=== PATIENT | male | born 1985 | race Caucasian/White ===

== ENCOUNTER → 2017-03-10 | Outpatient (CLI) | payer BC | END | disposition home or self-care (01) | LOC: C.LAB1850 16:30 | PROVIDERS: ATTEND Specialist | DX: Z11.3 Encounter for screening for infections with a predominantly sexual mode of transmission (principal); Z11.4 Encounter for screening for human immunodeficiency virus [HIV] ==

== ENCOUNTER 2020-08-13 18:34 | Inpatient (IN) ==
[2020-08-13] MEDS ORDERED: SODIUM CHLORIDE 0.9% 1000ML 1,000 ML IV ONE (19:52)
[2020-08-13 20:13] LABS: Basophils # (auto) 0.03 K/uL (0-0.2); Basophils % (auto) 0.2 %; Eosinophils # (auto) 0.19 K/uL (0-0.5); Eosinophils % (auto) 1.1 %; Hematocrit (blood only) 50.9 % (42-52); Hemoglobin 17.9 g/dL (14.0-18.0); Immature Granulocytes # (auto) 0.04 K/uL (0.00-0.02); Immature Granulocytes % (auto) 0.2 %; Lymphocytes # (auto) 2.42 K/uL (1.2-3.4); Lymphocytes % (auto) 13.9 %; Mean Corpuscular Hemoglobin 30.2 pg (25-34); Mean Corpuscular Hgb Conc 35.2 g/dL (32-36); Mean Corpuscular Volume 85.8 fL (80-100); Mean Platelet Volume 9.3 fL (7.4-10.4); Monocytes # (auto) 1.06 K/uL (0.11-0.59); Monocytes % (auto) 6.1 %; Neutrophils # (auto) 13.68 K/uL (1.4-6.5); Neutrophils % (auto) 78.5 %; Platelet Count 265 K/uL (130-400); RDW Coefficient of Variation 12.7 % (11.5-14.5); RDW Standard Deviation 40.1 fL (36.4-46.3); Red Blood Count 5.93 M/uL (4.7-6.1); White Blood Count 17.42 K/uL (4.8-10.8)
--- NOTE | 2020-08-13 20:16 | Emergency Department Note ---
Impression & Plan Sigmoid diverticulitis, Abdominal pain, Leukocytosis ED Provider Note NAME: MICHELLE ARDON AGE: 35 SEX: M : 1985 ARRIVES VIA: Walk-In INFORMANT: Patient ED PROVIDER(S): Toño Anglin DO CHIEF COMPLAINT: Right lower quadrant abdominal pain HPI: Patient is a 35-year-old male who presents the ER for right lower quadrant abdominal pain which started at 8 PM last night. He notes it is a constant pain sharp stabbing and a 7 out of 10. He does not want to eat anymore. Denies any vomiting. Denies any dysuria, urgency or frequency. No other exacerbating or remitting factors. Pain has been getting gradually worse. No previous abdominal surgeries. ROS: See above HPI for pertinent positives & negatives. A total of 10 systems reviewed and were otherwise negative. PAST MEDICAL HISTORY:See Below PAST SURGICAL HISTORY:See Below FAMILY HISTORY:See Below SOCIAL HISTORY:See Below HOME MEDICATIONS:See Below ALLERGIES:See Below VITALS:See Below PHYSICAL EXAMINATION: GENERAL: Sitting up in bed, alert, well appearing, well nourished, no distress, non-toxic EYE EXAM: normal conjunctiva. OROPHARYNX: no exudate, no erythema, lips, buccal mucosa, and tongue normal and mucous membranes are moist NECK: supple, no nuchal rigidity, no adenopathy, non-tender LUNGS: Clear to auscultation. Normal chest wall mechanics HEART: no murmurs, S1 normal and S2 normal ABDOMEN: abdomen soft, tender to palpation right lower quadrant, normo-active bowel sounds, no masses, no rebound or guarding. BACK: Back is symmetrical on inspection and there is no deformity, no midline tenderness, no CVA tenderness. SKIN: no rashes and no bruising UPPER EXTREMITIES: upper extremities are grossly normal. LOWER EXTREMITIES: No pitting edema. NEURO EXAM: Normal sensorium, cranial nerves II-XII grossly intact, normal speech, no gross weakness of arms, no gross weakness of legs. MEDICAL DECISION MAKING: Patient is a 35-year-old male who presents the ER for abdominal pain. Is located in the right lower quadrant. Associated with nausea. Patient does not feel like he wants to eat. Upon presentation he was found to be tachycardic. Temperature was 37.7. Labs show a leukocytosis of 17,000. No significant anemia. BMP with LFTs bilirubin was unremarkable. Lipase was unremarkable. UA was unremarkable. Patient was given IV fluids IV antibiotics and IV morphine. Discussed with general surgery following a CT abdomen pelvis which showed sigmoid diverticulitis in the right lower quadrant. Patient was given IV Flagyl and IV Cipro. Updated admitted to the hospitalist for further work-up. Triage Nursing notes reviewed. Prior medical records reviewed Vital Signs: reviewed and remarkable for tachy Differential diagnosis: Differential diagnoses includes but is not limited to gastritis, peptic ulcer disease, GERD, gallbladder disease, pancreatitis, small bowel obstruction, acute coronary syndrome, pericarditis, ischemic bowel, irritable bowel disease, irritable bowel syndrome, appendicitis, diverticulitis, malignancy, hernia, urinary tract infection, torsion, [/ectopic (if female)], perforation, trauma, infectious. ER treatment provided: See below Diagnostics interpreted by me: ECG: none Cardiac Monitoring: An order was placed for continuous cardiac monitoring. The monitor shows a rate of 94 with sinus rhythm. Laboratory studies: As stated above and show below. Imaging studies: CT abdomen pelvis shows acute diverticulitis Consultation(s): Discussed with Ly Ying for further evaluation Patient was evaluated by Lisandro from Surg who agreed with recommended admission ED COURSE: Procedures: none Critical Care: None Past Med/Surg History Surgical History (Updated 08/13/20 @ 23:43 by Tala Ying DO) History of hand surgery History of knee surgery History of shoulder surgery Family History (Updated 08/13/20 @ 23:43 by Tala Ying DO) Other Diverticulitis Social History Smoking Status: Never smoker Hx Alcohol Use: No Hx Substance Use: No Preferred Language: Portuguese Communication Ability: Effective 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 Beliefs That Will Affect Care: None Current Living Situation: Spouse Feels Safe at Home: Yes Assistive Devices: Glasses Allergies Allergies Allergy/AdvReac Type Severity Reaction Status Date / Time No Known Allergies Allergy Verified 08/13/20 22:33 Home Meds Home Medications Medication Instructions Recorded Confirmed No Known Home Medications 08/13/20 08/13/20 Results & Data (ED) Vital Signs Vital Signs - 24 hr 08/13/20 19:01 08/13/20 20:02 08/13/20 20:08 Temperature 37.6 C H Temperature Source Oral Pulse Rate 107 H 96 H Pulse Rate from SpO2 Sensor Respiratory Rate 16 18 Respiratory Effort / Characteristics Non-Labored Spontaneous Respiratory Depth Normal Blood Pressure 150/88 H 114/86 Blood Pressure Mean 108 91 Pulse Oximetry 99 Oxygen Delivery Method Room Air Room Air Sepsis Recent Fever Within 48 Hours No Sepsis New/Unexplained Change in Mental Status N/A Sepsis Action Taken by Nursing No Action Required 08/13/20 21:03 08/13/20 21:10 08/13/20 21:17 Temperature Temperature Source Pulse Rate 99 H 94 H 95 H Pulse Rate from SpO2 Sensor 94 H Respiratory Rate 22 21 15 Respiratory Effort / Characteristics Respiratory Depth Blood Pressure 130/88 Blood Pressure Mean 108 Pulse Oximetry 98 Oxygen Delivery Method Sepsis Recent Fever Within 48 Hours Sepsis New/Unexplained Change in Mental Status Sepsis Action Taken by Nursing 08/13/20 21:20 08/13/20 21:30 08/13/20 21:40 Temperature Temperature Source Pulse Rate 97 H 93 H 92 H Pulse Rate from SpO2 Sensor 99 H 91 H 93 H Respiratory Rate 19 22 23 Respiratory Effort / Characteristics Respiratory Depth Blood Pressure 120/85 Blood Pressure Mean 97 Pulse Oximetry 98 98 97 Oxygen Delivery Method Sepsis Recent Fever Within 48 Hours Sepsis New/Unexplained Change in Mental Status Sepsis Action Taken by Nursing 08/13/20 21:50 08/13/20 22:00 08/13/20 22:10 Temperature Temperature Source Pulse Rate 93 H 89 90 Pulse Rate from SpO2 Sensor 92 H 90 90 Respiratory Rate 19 16 16 Respiratory Effort / Characteristics Respiratory Depth Blood Pressure 114/71 Blood Pressure Mean 83 Pulse Oximetry 98 97 99 Oxygen Delivery Method Room Air Sepsis Recent Fever Within 48 Hours Sepsis New/Unexplained Change in Mental Status Sepsis Action Taken by Nursing 08/13/20 22:20 08/13/20 22:30 08/13/20 22:40 Temperature Temperature Source Pulse Rate 91 H 94 H 91 H Pulse Rate from SpO2 Sensor 92 H 93 H 92 H Respiratory Rate 12 17 19 Respiratory Effort / Characteristics Respiratory Depth Blood Pressure 124/82 Blood Pressure Mean 99 Pulse Oximetry 98 94 92 Oxygen Delivery Method Sepsis Recent Fever Within 48 Hours Sepsis New/Unexplained Change in Mental Status Sepsis Action Taken by Nursing 08/13/20 22:50 08/13/20 23:00 08/13/20 23:10 Temperature Temperature Source Pulse Rate 95 H 94 H 98 H Pulse Rate from SpO2 Sensor 96 H 94 H 98 H Respiratory Rate 26 H 23 26 H Respiratory Effort / Characteristics Respiratory Depth Blood Pressure 102/75 Blood Pressure Mean 81 Pulse Oximetry 92 92 92 Oxygen Delivery Method Sepsis Recent Fever Within 48 Hours Sepsis New/Unexplained Change in Mental Status Sepsis Action Taken by Nursing 08/13/20 23:20 Temperature Temperature Source Pulse Rate 93 H Pulse Rate from SpO2 Sensor 93 H Respiratory Rate 27 H Respiratory Effort / Characteristics Respiratory Depth Blood Pressure Blood Pressure Mean Pulse Oximetry 92 Oxygen Delivery Method Sepsis Recent Fever Within 48 Hours Sepsis New/Unexplained Change in Mental Status Sepsis Action Taken by Nursing Laboratory Data Result diagrams: 08/13/20 20:02 08/13/20 20:02 Lab Results 08/13/20 08/13/20 08/13/20 Range/Units 20:02 20:02 20:03 WBC 17.42 H (4.8-10.8) K/uL RBC 5.93 (4.7-6.1) M/uL Hgb 17.9 (14.0-18.0) g/dL POC Hgb (14.0-18.0) g/dl Hct 50.9 (42-52) % POC Hct (42-52) % MCV 85.8 (80-100) fL MCH 30.2 (25-34) pg MCHC 35.2 (32-36) g/dL RDW Std Deviation 40.1 (36.4-46.3) fL RDW Coeff of Carly 12.7 (11.5-14.5) % Plt Count 265 (130-400) K/uL MPV 9.3 (7.4-10.4) fL Immature Gran % (Auto) 0.2 % Neut % (Auto) 78.5 % Lymph % (Auto) 13.9 % [place] % (Auto) 6.1 % Eos % (Auto) 1.1 % Baso % (Auto) 0.2 % Neut # (Auto) 13.68 H (1.4-6.5) K/uL Lymph # (Auto) 2.42 (1.2-3.4) K/uL [place] # (Auto) 1.06 H (0.11-0.59) K/uL Eos # (Auto) 0.19 (0-0.5) K/uL Baso # (Auto) 0.03 (0-0.2) K/uL Immature Gran # (Auto) 0.04 H (0.00-0.02) K/uL POC Sodium (135-144) mmol/L Sodium 139 (136-145) mmol/L POC Potassium (3.3-5.0) mmol/L Potassium 3.8 (3.5-5.1) mmol/L POC Chloride (101-112) mmol/L Chloride 102 (98-107) mmol/L Carbon Dioxide 29 (21-32) mmol/L POC Total CO2 (24-31) mmol/L Anion Gap 8.0 (3-11) POC Anion Gap (16-25) mmol/L POC BUN (7-18) mg/dl BUN 11 (7-18) mg/dl Creatinine 1.09 (0.6-1.4) mg/dl POC Creatinine (0.6-1.3) mg/dl Est Cr Clr Drug Dosing 114.6 ml/min Est GFR ( Amer) 102.1 Est GFR (Non-Af Amer) 88.1 BUN/Creatinine Ratio 10.4 (10-20) Glucose 106 H (70-99) mg/dl POC Glucose (other) (70-99) mg/dl Calcium 9.8 (8.5-10.1) mg/dl POC Ioniz Calcium Minerva (1.12-1.32) mmol/l Total Bilirubin 0.6 (0.2-1) mg/dl AST 15 (15-37) U/L ALT 59 (12-78) U/L Alkaline Phosphatase 87 (45-117) U/L Total Protein 8.8 H (6.4-8.2) gm/dl Albumin 4.3 (3.4-5.0) gm/dl Globulin 4.5 H (2.5-4.0) gm/dl Albumin/Globulin Ratio 1.0 (0.9-2) Lipase 68 L (73-393) U/L Urine Color Yellow Urine Appearance Clear (Clear) Urine pH 6.0 (4.5-7.5) Ur Specific [place] 1.018 (1.000-1.030) Urine Protein Negative (Negative) Urine Glucose (UA) Negative (Negative) Urine Ketones Negative (Negative) Urine Blood Negative (Negative) Urine Nitrite Negative (Negative) Urine Bilirubin Negative (Negative) Urine Urobilinogen Negative (Negative) Ur Leukocyte Esterase Negative (Negative) 08/13/20 Range/Units 20:08 WBC (4.8-10.8) K/uL RBC (4.7-6.1) M/uL Hgb (14.0-18.0) g/dL POC Hgb 19.7 H (14.0-18.0) g/dl Hct (42-52) % POC Hct 58 H (42-52) % MCV (80-100) fL MCH (25-34) pg MCHC (32-36) g/dL RDW Std Deviation (36.4-46.3) fL RDW Coeff of Carly (11.5-14.5) % Plt Count (130-400) K/uL MPV (7.4-10.4) fL Immature Gran % (Auto) % Neut % (Auto) % Lymph % (Auto) % [place] % (Auto) % Eos % (Auto) % Baso % (Auto) % Neut # (Auto) (1.4-6.5) K/uL Lymph # (Auto) (1.2-3.4) K/uL [place] # (Auto) (0.11-0.59) K/uL Eos # (Auto) (0-0.5) K/uL Baso # (Auto) (0-0.2) K/uL Immature Gran # (Auto) (0.00-0.02) K/uL POC Sodium 139 (135-144) mmol/L Sodium (136-145) mmol/L POC Potassium 3.7 (3.3-5.0) mmol/L Potassium (3.5-5.1) mmol/L POC Chloride 102 (101-112) mmol/L Chloride (98-107) mmol/L Carbon Dioxide (21-32) mmol/L POC Total CO2 25 (24-31) mmol/L Anion Gap (3-11) POC Anion Gap 17.0 (16-25) mmol/L POC BUN 12 (7-18) mg/dl BUN (7-18) mg/dl Creatinine (0.6-1.4) mg/dl POC Creatinine 0.9 (0.6-1.3) mg/dl Est Cr Clr Drug Dosing ml/min Est GFR ( Amer) Est GFR (Non-Af Amer) BUN/Creatinine Ratio (10-20) Glucose (70-99) mg/dl POC Glucose (other) 111 H (70-99) mg/dl Calcium (8.5-10.1) mg/dl POC Ioniz Calcium [place] 0.95 L (1.12-1.32) mmol/l Total Bilirubin (0.2-1) mg/dl AST (15-37) U/L ALT (12-78) U/L Alkaline Phosphatase (45-117) U/L Total Protein (6.4-8.2) gm/dl Albumin (3.4-5.0) gm/dl Globulin (2.5-4.0) gm/dl Albumin/Globulin Ratio (0.9-2) Lipase (73-393) U/L Urine Color Urine Appearance (Clear) Urine pH (4.5-7.5) Ur Specific [place] (1.000-1.030) Urine Protein (Negative) Urine Glucose (UA) (Negative) Urine Ketones (Negative) Urine Blood (Negative) Urine Nitrite (Negative) Urine Bilirubin (Negative) Urine Urobilinogen (Negative) Ur Leukocyte Esterase (Negative) Administered Medications Discontinued Medications Sodium Chloride (Nss 1000ml) 1,000 mls @ 999 mls/hr IV .Q1H1M ONE Stop: 08/13/20 20:52 Last Infusion: 08/13/20 21:12 Dose: 0 mls/hr Documented by: [id number] Admin: 08/13/20 20:08 Dose: 999 mls/hr Documented by: [id number] Metronidazole (Flagyl) 500 mg in 100 mls @ 100 mls/hr IV NOW STA Stop: 08/13/20 22:01 Last Infusion: 08/13/20 22:49 Dose: 0 mls/hr Documented by: [id number] Admin: 08/13/20 21:21 Dose: 100 mls/hr Documented by: [id number] Ciprofloxacin (Cipro / D5w) 400 mg in 200 mls @ 100 mls/hr IV NOW STA; Protocol Stop: 08/13/20 23:01 Last Infusion: 08/13/20 23:11 Dose: 0 mls/hr Documented by: [id number] Admin: 08/13/20 21:21 Dose: 100 mls/hr Documented by: [id number] Ioversol (Ioversol 100ml) 94 ml IV ONCE ONE Stop: 08/13/20 20:22 Last Admin: 08/13/20 20:21 Dose: 94 ml Documented by: [id number] Morphine Sulfate (Morphine Sulfate 10 Mg/Ml Carp/Vial) 6 mg IV NOW STA Stop: 08/13/20 22:04 Last Admin: 08/13/20 22:10 Dose: 6 mg Documented by: [id number] Ondansetron HCl (Ondansetron Inj 2 Mg/Ml 2 Ml Vial) 4 mg IV NOW STA Stop: 08/13/20 22:04 Last Admin: 08/13/20 22:10 Dose: 4 mg Documented by: [id number] Discharge Plan Visit Data Chief Complaint: Abdominal Pain Stated Complaint: Abdominal Pain for 2 days ED Provider: Toño Anglin Discharge Problem: Sigmoid diverticulitis, Abdominal pain, Leukocytosis Discharge Instructions Interventions: ED Discharge Assessment Last Done: 08/13/20 23:23 Forms Stand Alone Forms: [employer] Prescriptions Prescriptions: No Action No Known Home Medications RF: 0 Referrals Referrals: Ela Padilla MD [Primary Care Provider] - Discharge Problem: Abdominal pain Qualifiers: Abdominal location: unspecified location Qualified Code(s): R10.9 - Unspecified abdominal pain Leukocytosis Qualifiers: Leukocytosis type: unspecified Qualified Code(s): D72.829 - Elevated white blood cell count, unspecified
[2020-08-13 20:17] LABS: Appearance Urine Clear (Clear); Bilirubin Urine Negative (Negative); Blood Urine Negative (Negative); Color Urine Yellow; Glucose Urine UA Negative (Negative); Ketones Urine Negative (Negative); Leukocyte Esterase Urine Negative (Negative); Nitrite Urine Negative (Negative); Protein Urine Negative (Negative); Specific Gravity Urine 1.018 (1.000-1.030); Urobilinogen Urine Negative (Negative)
[2020-08-13 20:21] LABS: iSTAT Creatinine 0.9 mg/dl (0.6-1.3); iSTAT Hemoglobin 19.7 g/dl (14.0-18.0); iSTAT Ionized Calcium 0.95 mmol/l (1.12-1.32); iSTAT Potassium 3.7 mmol/L (3.3-5.0)
[2020-08-13] MEDS ORDERED: IOVERSOL 100ml IV ONE (20:21)
[2020-08-13 20:30] LABS: Albumin Level 4.3 gm/dl (3.4-5.0); BUN Creatinine Ratio 10.4 (10-20); Calcium 9.8 mg/dl (8.5-10.1); Creatinine Clr Calc Pharmacy 114.6 ml/min; Est GFR (African American) 102.1; Est GFR (Non-African American) 88.1; Potassium 3.8 mmol/L (3.5-5.1)
[2020-08-13 20:33] LABS: Bilirubin,Total 0.6 mg/dl (0.2-1); Globulin 4.5 gm/dl (2.5-4.0); Total Protein 8.8 gm/dl (6.4-8.2)
--- NOTE | 2020-08-13 20:44 | CT Scan Report ---
ABDOMEN AND PELVIS CT WITH IV CONTRAST CT DOSE: 983.98 mGy.cm HISTORY: Right lower quadrant abdominal pain. TECHNIQUE: Multiaxial CT images of the abdomen and pelvis were performed following the use of intrave nous contrast. A dose lowering technique was utilized adhering to the principles of ALARA. COMPARISON STUDY: None. FINDINGS: Focal moderate thickening within the mid sigmoid colon which is located within the right lo wer quadrant with surrounding pericolonic inflammatory change. There are few diverticula at this loca tion. Therefore, this favors acute sigmoid diverticulitis. No perforation or abscess identified at th is time. The proximal to mid appendix is identified and appears to be normal in caliber measuring up to 6 mm. This is best seen on image 292. The tip the appendix is partially obscured by the adjacent i nflammatory change and small bowel. The bladder is unremarkable. Tiny fat-containing bilateral inguin al hernias. No pelvic lymphadenopathy. No evidence for bowel obstruction. Hepatic steatosis. The main portal vein is patent. The gallbladder, pancreas, spleen, adrenal glands, and kidneys are within nor mal limits. Normal caliber abdominal aorta. No fractures within the visualized osseous structures. Th e lung bases are clear. No pneumoperitoneum. No pneumatosis. IMPRESSION: 1. Focal moderate thickening within the mid sigmoid colon which is located within the right lower marbella drant with surrounding pericolonic inflammatory change. There are few diverticula at this location. T herefore, this favors acute sigmoid diverticulitis. No perforation or abscess identified at this time . Follow-up nonemergent colonoscopy is recommended once the diverticulitis has resolved to exclude th e less likely possibility of an underlying colonic lesion. 2. The proximal to mid appendix is identified and appears to be normal in caliber measuring up to 6 m m. The tip the appendix is partially obscured by the adjacent inflammatory change and small bowel. ACT 112: Negative or not required by law. Electronically signed by: Jonathan Quick M.D. 08/13/2020 8:42 PM
[2020-08-13] MEDS ORDERED: metroNIDAZOLE 500 MG/100 ML BAG IV STA (21:02)
[2020-08-13] MEDS ORDERED: CIPROFLOXACIN / D5W 400 MG/200 ML BAG IV STA (21:02)
--- NOTE | 2020-08-13 21:45 | Surgery Consultation ---
Date of Consultation August 13, 2020 Assessment & Plan (1) Sigmoid diverticulitis: -due to elevated WBC, fever, tachycardia, pain and length of travel (45 min to 1 hour) recommend admission to medical service and the following interventions: -NPO except ice chips -IVF for hydration -IV antibiotics--has already received cipro and flagyl in ED -serial labs -consider advancing diet and transitioning to po antibiotic once clinical improvement noted (decreased pain, no fevers, normalizing WBC) -will follow while hospitalized History of Present Illness History of Present Illness 35 year old male presented to [facility] ED with abdominal pain x 36 hours. He notes pain is non-radiating and located primarily in RLQ. Pain is palliated by lying still and worse with movement and going over bumps in car. He denies fevers, shakes, chills. No N/V. No diarrhea, BRBPR, or melena. he has had a hx. of gastric ulcer diagnosed by EGD about 7 years ago. He also had colonoscopy x 2 about 7 and 5 years ago, performed due to change in bowel habits--he was told he had diverticular disease. In the ED, he had a low grade fever, was tachycardic, had WBC of 17k, and CT scan of the abdomen showed concern for sigmoid diverticulitis. At the time of my exam he was in no distress. Allergies Allergy/AdvReac Type Severity Reaction Status Date / Time No Known Allergies Allergy Unverified 08/06/16 13:05 Patient History Social History Smoking Status: Never smoker Feels Safe at Home: Yes Review of Systems Constitutional: no fever and no chills Eyes: no diplopia Ear, Nose, Mouth, Throat: no ear pain Respiratory: no cough and no dyspnea Cardiovascular: no chest pain Gastrointestinal: + abdominal pain; no nausea, no vomiting, no coffee ground emesis, no hematemesis, no change in bowel habits and no diarrhea/loose stools Genitourinary: no dysuria Musculoskeletal: no back pain Integumentary: no rash Neurologic: no localized weakness Physical Exam Constitutional: well developed and well nourished; no acute distress Eyes: no conjunctival abnormality wears glasses ENMT: Ears: no hearing impairment Neck: trachea midline Respiratory: normal respiratory effort, lungs clear to auscultation Cardiovascular: Rate/Rhythm: regular rate and regular rhythm Gastrointestinal (Abdomen): abdomen has slight distention; BS are hypoactive, rebound tenderness noted. Pain noted with palaption in RLQ Musculoskeletal: no calf pain Skin: no rashes, warm and dry Neurologic: moves all extremities Psychiatric: Orientation: alert Results & Data ([facility]) Vital Signs (Past 12 Hours) Vital Signs Temp Pulse Resp BP Pulse Ox 08/13/20 21:20 97 H 19 98 08/13/20 21:17 95 H 15 130/88 98 08/13/20 21:10 94 H 21 08/13/20 21:03 99 H 22 08/13/20 20:02 96 H 18 114/86 08/13/20 19:01 37.6 C H 107 H 16 150/88 H 99 PG Care Time/CCT Total # of Minutes Spent Total Time Spent with Patient: Total time spent is greater than 50% in coordination of care (as documented) at patient's floor/unit and/or counseling patient: Coding Level of Care Code 07837 Inpt Consult Level 5 Diagnoses Sigmoid diverticulitis K57.32
[2020-08-13] MEDS ORDERED: MoRPHine SULFATE 10 MG/ML CARP/VIAL IV STA (22:03)
[2020-08-13] MEDS ORDERED: ONDANSETRON INJ 2 MG/ML 2 ML VIAL IV STA (22:03)
--- NOTE | 2020-08-13 22:34 | History & Physical Report ---
Date of Service August 13, 2020 Assessment & Plan (1) Sigmoid diverticulitis: 35yo C male with no significant past medical history presenting with RLQ abdominal pain x 48 hours, found with sigmoid diverticulitis, leukocytosis. Patient afebrile, HD stable, non-toxic in appearance. Tender abdomen with some guarding and rebound tenderness. He has been evaluated by Surgery, inpatient admission recommended -Admit to medical floor -IV antibiotics with Ciprofloxacin, Flagyl -IVF -Morphine as needed for pain -Zofran as needed for nausea -Patient will need followup colonoscopy after acute issues resolve -Repeat labs in AM F/E/N - NSS at 125mL/hr x 2 liters, electrolytes WNL, NPO for now Ppx - Low risk for DVT Code - Full Dispo - Admit to medical floor Present on Admission?: Yes History of Present Illness Chief Complaint: RLQ pain Primary Care Provider: Ela Padilla MD 35yo C male with no significant past medical history presenting with RLQ abdominal pain that began suddently at 20:00 yesterday. Pain initially mild, 2- 3/10 but became more severe throughout the day. He has some chills but denies fever/nausea/vomiting/diarrhea/bleeding. He is slightly constipated - last BM yesterday at 08:30. No additional complaints at this time. No previous diagnosis of diverticulitis. Patient's mother has diverticulitis. ER Course: Cipro, Flagyl, NSS, Surgery consultation completed - admission recommended for IV antibiotics Allergies Allergy/AdvReac Type Severity Reaction Status Date / Time No Known Allergies Allergy Verified 08/13/20 22:33 Home Medications Home Medications Medication Instructions Recorded Confirmed Type No Known Home Medications 08/13/20 08/13/20 History Past Med/Surg History Surgical History (Updated 08/13/20 @ 23:43 by Tala Ying DO) History of hand surgery History of knee surgery History of shoulder surgery Family History (Updated 08/13/20 @ 23:43 by Tala Ying DO) Other Diverticulitis Social History Smoking Status: Never smoker Hx Alcohol Use: No Hx Substance Use: No Preferred Language: French Communication Ability: Effective Personal Care Service Provider Required: No Beliefs That Will Affect Care: None Current Living Situation: Spouse Feels Safe at Home: Yes Assistive Devices: Glasses Review of Systems Review of Systems: All systems reviewed & are unremarkable except as noted in HPI & below Physical Exam Physical Exam: General: patient resting comfortably, NAD, non-toxic in appearance, AA&O x 4 Skin: warm, dry, intact, no rashes or lesions HEENT: NC/AT, PERRL, EOMI, anicteric sclera, conjunctiva without injection, external ear normal to inspection and nontender, nares patent, moist mucus membranes, dentition intact, no oropharyngeal lesions, neck supple, trachea midline, no LAD, no thyromegaly, no JVD Heart: +S1/S2, regular, no m/r/g Lungs: equal air entry bilaterally, no rales/rhonchi/wheezes Abd: +BS, soft, mildly distended, RLQ tenderness with voluntary guarding, mild rebound tenderness, no masses/organomegaly/ascites Ext: warm, 2+ pulses in UE/LE bilaterally, no clubbing/cyanosis or edema Neuro: nonfocal, patient AA&O x 4, speech intact, no facial droop, moving all extremities on command with equal strength 5/5 Results & Data Results & Data ([facility]) Vital Signs (Past 12 Hours) Vital Signs Temp Pulse Resp BP Pulse Ox 08/13/20 21:20 97 H 19 98 08/13/20 21:17 95 H 15 130/88 98 08/13/20 21:10 94 H 21 08/13/20 21:03 99 H 22 08/13/20 20:02 96 H 18 114/86 08/13/20 19:01 37.6 C H 107 H 16 150/88 H 99 Laboratory Results Lab Results 08/13/20 08/13/20 08/13/20 Range/Units 20:02 20:02 20:03 WBC 17.42 H (4.8-10.8) K/uL RBC 5.93 (4.7-6.1) M/uL Hgb 17.9 (14.0-18.0) g/dL POC Hgb (14.0-18.0) g/dl Hct 50.9 (42-52) % POC Hct (42-52) % MCV 85.8 (80-100) fL MCH 30.2 (25-34) pg MCHC 35.2 (32-36) g/dL RDW Std Deviation 40.1 (36.4-46.3) fL RDW Coeff of Carly 12.7 (11.5-14.5) % Plt Count 265 (130-400) K/uL MPV 9.3 (7.4-10.4) fL Immature Gran % (Auto) 0.2 % Neut % (Auto) 78.5 % Lymph % (Auto) 13.9 % [place] % (Auto) 6.1 % Eos % (Auto) 1.1 % Baso % (Auto) 0.2 % Neut # (Auto) 13.68 H (1.4-6.5) K/uL Lymph # (Auto) 2.42 (1.2-3.4) K/uL [place] # (Auto) 1.06 H (0.11-0.59) K/uL Eos # (Auto) 0.19 (0-0.5) K/uL Baso # (Auto) 0.03 (0-0.2) K/uL Immature Gran # (Auto) 0.04 H (0.00-0.02) K/uL POC Sodium (135-144) mmol/L Sodium 139 (136-145) mmol/L POC Potassium (3.3-5.0) mmol/L Potassium 3.8 (3.5-5.1) mmol/L POC Chloride (101-112) mmol/L Chloride 102 (98-107) mmol/L Carbon Dioxide 29 (21-32) mmol/L POC Total CO2 (24-31) mmol/L Anion Gap 8.0 (3-11) POC Anion Gap (16-25) mmol/L POC BUN (7-18) mg/dl BUN 11 (7-18) mg/dl Creatinine 1.09 (0.6-1.4) mg/dl POC Creatinine (0.6-1.3) mg/dl Est Cr Clr Drug Dosing 114.6 ml/min Est GFR ( Amer) 102.1 Est GFR (Non-Af Amer) 88.1 BUN/Creatinine Ratio 10.4 (10-20) Glucose 106 H (70-99) mg/dl POC Glucose (other) (70-99) mg/dl Calcium 9.8 (8.5-10.1) mg/dl POC Ioniz Calcium [place] (1.12-1.32) mmol/l Total Bilirubin 0.6 (0.2-1) mg/dl AST 15 (15-37) U/L ALT 59 (12-78) U/L Alkaline Phosphatase 87 (45-117) U/L Total Protein 8.8 H (6.4-8.2) gm/dl Albumin 4.3 (3.4-5.0) gm/dl Globulin 4.5 H (2.5-4.0) gm/dl Albumin/Globulin Ratio 1.0 (0.9-2) Lipase 68 L (73-393) U/L Urine Color Yellow Urine Appearance Clear (Clear) Urine pH 6.0 (4.5-7.5) Ur Specific [place] 1.018 (1.000-1.030) Urine Protein Negative (Negative) Urine Glucose (UA) Negative (Negative) Urine Ketones Negative (Negative) Urine Blood Negative (Negative) Urine Nitrite Negative (Negative) Urine Bilirubin Negative (Negative) Urine Urobilinogen Negative (Negative) Ur Leukocyte Esterase Negative (Negative) 08/13/20 Range/Units 20:08 WBC (4.8-10.8) K/uL RBC (4.7-6.1) M/uL Hgb (14.0-18.0) g/dL POC Hgb 19.7 H (14.0-18.0) g/dl Hct (42-52) % POC Hct 58 H (42-52) % MCV (80-100) fL MCH (25-34) pg MCHC (32-36) g/dL RDW Std Deviation (36.4-46.3) fL RDW Coeff of Carly (11.5-14.5) % Plt Count (130-400) K/uL MPV (7.4-10.4) fL Immature Gran % (Auto) % Neut % (Auto) % Lymph % (Auto) % [place] % (Auto) % Eos % (Auto) % Baso % (Auto) % Neut # (Auto) (1.4-6.5) K/uL Lymph # (Auto) (1.2-3.4) K/uL [place] # (Auto) (0.11-0.59) K/uL Eos # (Auto) (0-0.5) K/uL Baso # (Auto) (0-0.2) K/uL Immature Gran # (Auto) (0.00-0.02) K/uL POC Sodium 139 (135-144) mmol/L Sodium (136-145) mmol/L POC Potassium 3.7 (3.3-5.0) mmol/L Potassium (3.5-5.1) mmol/L POC Chloride 102 (101-112) mmol/L Chloride (98-107) mmol/L Carbon Dioxide (21-32) mmol/L POC Total CO2 25 (24-31) mmol/L Anion Gap (3-11) POC Anion Gap 17.0 (16-25) mmol/L POC BUN 12 (7-18) mg/dl BUN (7-18) mg/dl Creatinine (0.6-1.4) mg/dl POC Creatinine 0.9 (0.6-1.3) mg/dl Est Cr Clr Drug Dosing ml/min Est GFR ( Amer) Est GFR (Non-Af Amer) BUN/Creatinine Ratio (10-20) Glucose (70-99) mg/dl POC Glucose (other) 111 H (70-99) mg/dl Calcium (8.5-10.1) mg/dl POC Ioniz Calcium [place] 0.95 L (1.12-1.32) mmol/l Total Bilirubin (0.2-1) mg/dl AST (15-37) U/L ALT (12-78) U/L Alkaline Phosphatase (45-117) U/L Total Protein (6.4-8.2) gm/dl Albumin (3.4-5.0) gm/dl Globulin (2.5-4.0) gm/dl Albumin/Globulin Ratio (0.9-2) Lipase (73-393) U/L Urine Color Urine Appearance (Clear) Urine pH (4.5-7.5) Ur Specific [place] (1.000-1.030) Urine Protein (Negative) Urine Glucose (UA) (Negative) Urine Ketones (Negative) Urine Blood (Negative) Urine Nitrite (Negative) Urine Bilirubin (Negative) Urine Urobilinogen (Negative) Ur Leukocyte Esterase (Negative) Diagnostic Findings ABDOMEN AND PELVIS CT WITH IV CONTRAST CT DOSE: 983.98 mGy.cm HISTORY: Right lower quadrant abdominal pain. TECHNIQUE: Multiaxial CT images of the abdomen and pelvis were performed following the use of intravenous contrast. A dose lowering technique was utilized adhering to the principles of ALARA. COMPARISON STUDY: None. FINDINGS: Focal moderate thickening within the mid sigmoid colon which is located within the right lower quadrant with surrounding pericolonic inflammatory change. There are few diverticula at this location. Therefore, this favors acute sigmoid diverticulitis. No perforation or abscess identified at this time. The proximal to mid appendix is identified and appears to be normal in caliber measuring up to 6 mm. This is best seen on image 292. The tip the appendix is partially obscured by the adjacent inflammatory change and small bowel. The bladder is unremarkable. Tiny fat-containing bilateral inguinal hernias. No pelvic lymphadenopathy. No evidence for bowel obstruction. Hepatic steatosis. The main portal vein is patent. The gallbladder, pancreas, spleen, adrenal glands, and kidneys are within normal limits. Normal caliber abdominal aorta. No fractures within the visualized osseous structures. The lung bases are clear. No pneumoperitoneum. No pneumatosis. IMPRESSION: 1. Focal moderate thickening within the mid sigmoid colon which is located within the right lower quadrant with surrounding pericolonic inflammatory change. There are few diverticula at this location. Therefore, this favors acute sigmoid diverticulitis. No perforation or abscess identified at this time. Follow-up nonemergent colonoscopy is recommended once the diverticulitis has resolved to exclude the less likely possibility of an underlying colonic lesion. 2. The proximal to mid appendix is identified and appears to be normal in caliber measuring up to 6 mm. The tip the appendix is partially obscured by the adjacent inflammatory change and small bowel. ACT 112: Negative or not required by law. Electronically signed by: Jonathan Quick M.D. 08/13/2020 8:42 PM Dictated: 08/13/202034 Transcribed: 08/13/202034 Code Status & VTE Plan Code Status FULL PG Care Time/CCT Total # of Minutes Spent Total Time Spent with Patient: Total time spent is greater than 50% in coordination of care (as documented) at patient's floor/unit and/or counseling patient: Coding Level of Care Code 99798 Initial Inpt Care Lvl 2 Diagnoses Sigmoid diverticulitis K57.32
[2020-08-13] MEDS ORDERED: INFLUENZA ADMINISTRATION CHARGE ONE (23:22)
[2020-08-13] MEDS ORDERED: INFLUENZA VIRUS QUAD VACCINE 0.5 ML SYR IM ONE (23:22)
[2020-08-14] MEDS ORDERED: ACETAMINOPHEN 325 MG TAB PO PRN (00:48)
[2020-08-14] MEDS ORDERED: ONDANSETRON INJ 2 MG/ML 2 ML VIAL IV PRN (00:48)
[2020-08-14] MEDS: MoRPHine SULFATE 2 MG/ML CARP IV PRN ×3 (01:01→12:30)
[2020-08-14] MEDS: SODIUM CHLORIDE 0.9% 1000ML 1,000 ML IV SCH ×2 (01:45→12:24)
[2020-08-14] MEDS: metroNIDAZOLE 500 MG/100 ML BAG IV SCH ×3 (04:52→19:20)
[2020-08-14 06:24] LABS: Basophils # (auto) 0.02 K/uL (0-0.2); Basophils % (auto) 0.1 %; Eosinophils # (auto) 0.13 K/uL (0-0.5); Eosinophils % (auto) 0.9 %; Hematocrit (blood only) 46.2 % (42-52); Hemoglobin 15.7 g/dL (14.0-18.0); Immature Granulocytes # (auto) 0.03 K/uL (0.00-0.02); Immature Granulocytes % (auto) 0.2 %; Lymphocytes # (auto) 2.77 K/uL (1.2-3.4); Lymphocytes % (auto) 18.8 %; Mean Corpuscular Hemoglobin 29.7 pg (25-34); Mean Corpuscular Volume 87.3 fL (80-100); Mean Platelet Volume 9.6 fL (7.4-10.4); Monocytes # (auto) 1.16 K/uL (0.11-0.59); Monocytes % (auto) 7.9 %; Neutrophils # (auto) 10.65 K/uL (1.4-6.5); Neutrophils % (auto) 72.1 %; Platelet Count 255 K/uL (130-400); RDW Coefficient of Variation 12.9 % (11.5-14.5); RDW Standard Deviation 41.1 fL (36.4-46.3); Red Blood Count 5.29 M/uL (4.7-6.1); White Blood Count 14.76 K/uL (4.8-10.8)
--- NOTE | 2020-08-14 06:53 | Surgery Progress Note ---
Date of Service August 14, 2020 Assessment & Plan (1) Sigmoid diverticulitis: Patient appears to be stable and does not require urgent surgical intervention Continue ice chips only for now Continue IV antibiotics for at least 2 to 3 days total Continue to monitor progress Admission and Anticipated Discharge Date Admission Date: August 13, 2020 Subjective Patient is awake and alert no distress Does have some right lower quadrant pain Voiding well Review of Systems Review of Systems: All systems reviewed & are unremarkable except as noted in HPI & below Physical Exam Physical Exam: Abdomen is soft he does have some right lower quadrant pain to deep palpation Constitutional: well nourished; no acute distress Eyes: + anicteric sclerae Respiratory: normal respiratory effort; no respiratory distress Cardiovascular: Rate/Rhythm: regular rate Musculoskeletal: Head/Neck/Chest: head atraumatic Skin: no rashes, warm and dry Neurologic: awake Psychiatric: Orientation: alert Results & Data ([facility]) Vital Signs (Past 12 Hours) Vital Signs Temp Pulse Pulse Resp BP BP Pulse Ox 08/13/20 23:40 37.4 C 86 18 119/76 97 08/13/20 23:20 93 H 27 H 92 08/13/20 23:10 98 H 26 H 92 08/13/20 23:00 94 H 23 102/75 92 08/13/20 22:50 95 H 26 H 92 08/13/20 22:40 91 H 19 92 08/13/20 22:30 94 H 17 124/82 94 08/13/20 22:20 91 H 12 98 08/13/20 22:10 90 16 99 08/13/20 22:00 89 16 114/71 97 08/13/20 21:50 93 H 19 98 08/13/20 21:40 92 H 23 97 08/13/20 21:30 93 H 22 120/85 98 08/13/20 21:20 97 H 19 98 08/13/20 21:17 95 H 15 130/88 98 08/13/20 21:10 94 H 21 08/13/20 21:03 99 H 22 08/13/20 20:02 96 H 18 114/86 08/13/20 19:01 37.6 C H 107 H 16 150/88 H 99 PG Care Time/CCT Total # of Minutes Spent Total Time Spent with Patient: Total time spent is greater than 50% in coordination of care (as documented) at patient's floor/unit and/or counseling patient: Coding Level of Care Code 81627 Inpt Consult Level 3 Diagnoses Sigmoid diverticulitis K57.32
[2020-08-14 06:55] LABS: Calcium 8.7 mg/dl (8.5-10.1); Creatinine Clr Calc Pharmacy 111.6 ml/min; Est GFR (African American) 97.7; Est GFR (Non-African American) 84.3; Potassium 4.1 mmol/L (3.5-5.1)
[2020-08-14] MEDS: CIPROFLOXACIN / D5W 400 MG/200 ML BAG IV SCH ×2 (08:23→20:44)
--- NOTE | 2020-08-14 20:54 | Hospitalist Progress Note ---
Date of Service August 14, 2020 Assessment & Plan (1) Sigmoid diverticulitis: Clinically improving. Cont IV cipro/flagyl. Cont IV fluids. Renew D5NS with KCL at 125cc/hr. Cont NPO status today; likely clears in am. Repeat labs in am. Appreciate gen surg consultation and recs. Will need outpatient colonoscopy in about 8 weeks to ensure no other pathology. DVT proph - ambulation; low risk. Admission and Anticipated Discharge Date Admission Date: August 13, 2020 Subjective patient reports abd pain is improved. no nausea or emesis. no bowel movement today. no fevers. no dyspnea. states he has had GI issues for years, and has had EGD x 2 and colonoscopy x 2 over the last 10 years. last EGD with colonoscopy was 4 years ago at [facility]. records retrieved -- EGD with esophagitis and gastritis; colonoscopy COMPLETELY normal with no diverticuli. Review of Systems Constitutional: no fever, no chills, no fatigue and no anorexia appetite is returning Respiratory: no cough and no dyspnea Cardiovascular: no chest pain Physical Exam Constitutional: well developed and well nourished; no acute distress and no altered mental status ENMT: external ear and nose normal, oropharynx normal Respiratory: normal respiratory effort, lungs clear to auscultation Cardiovascular: Rate/Rhythm: regular rate and regular rhythm Heart Sounds: normal S1 and normal S2; no murmur Vessels: posterior tibial pulses present and dorsalis pedis pulses present; no JVD Extremities: no edema Gastrointestinal (Abdomen): Inspection/Auscultation: abdomen not distended Percussion/Palpation: + abdomen tender (RLQ and midline lower abdomen ) and abdomen soft; no guarding and no hepatosplenomegaly Psychiatric: A+Ox3, euthymic affect Results & Data Results & Data ([facility]) Vital Signs (Past 12 Hours) Vital Signs Temp Pulse Pulse Resp BP Pulse Ox 08/14/20 15:23 36.5 C 74 16 116/72 94 08/14/20 12:37 36.8 C 90 18 121/73 95 Laboratory Results Laboratory Results - last 24 hr 08/14/20 08/14/20 05:33 05:33 WBC 14.76 H RBC 5.29 Hgb 15.7 Hct 46.2 MCV 87.3 MCH 29.7 MCHC 34.0 RDW Std Deviation 41.1 RDW Coeff of Carly 12.9 Plt Count 255 MPV 9.6 Immature Gran % (Auto) 0.2 Neut % (Auto) 72.1 Lymph % (Auto) 18.8 [place] % (Auto) 7.9 Eos % (Auto) 0.9 Baso % (Auto) 0.1 Neut # (Auto) 10.65 H Lymph # (Auto) 2.77 [place] # (Auto) 1.16 H Eos # (Auto) 0.13 Baso # (Auto) 0.02 Immature Gran # (Auto) 0.03 H Sodium 141 Potassium 4.1 Chloride 105 Carbon Dioxide 32 Anion Gap 4.0 BUN 10 Creatinine 1.13 Est Cr Clr Drug Dosing 111.6 Est GFR ( Amer) 97.7 Est GFR (Non-Af Amer) 84.3 BUN/Creatinine Ratio 9.0 L Glucose 95 Calcium 8.7 PG Care Time/CCT Total # of Minutes Spent Total Time Spent with Patient: Total time spent is greater than 50% in coordination of care (as documented) at patient's floor/unit and/or counseling patient: Coding Level of Care Code 18066 Subseq Hosp Care Lvl 1 Diagnoses Sigmoid diverticulitis K57.32
[2020-08-14] MEDS: D5NSS + 20MEQ KCL 20 MEQ/1,000 ML BAG IV SCH (22:02)
[2020-08-15] MEDS: metroNIDAZOLE 500 MG/100 ML BAG IV SCH ×3 (03:59→20:13)
[2020-08-15] MEDS: D5NSS + 20MEQ KCL 20 MEQ/1,000 ML BAG IV SCH ×2 (05:08→17:08)
[2020-08-15 06:30] LABS: Hematocrit (blood only) 45.2 % (42-52); Hemoglobin 15.3 g/dL (14.0-18.0); Mean Corpuscular Hemoglobin 29.7 pg (25-34); Mean Corpuscular Hgb Conc 33.8 g/dL (32-36); Mean Corpuscular Volume 87.6 fL (80-100); Mean Platelet Volume 9.3 fL (7.4-10.4); Platelet Count 247 K/uL (130-400); RDW Coefficient of Variation 12.7 % (11.5-14.5); Red Blood Count 5.16 M/uL (4.7-6.1); White Blood Count 10.43 K/uL (4.8-10.8)
[2020-08-15 07:02] LABS: BUN Creatinine Ratio 8.3 (10-20); Creatinine Clr Calc Pharmacy 114.6 ml/min; Est GFR (Non-African American) 87.1; Potassium 3.8 mmol/L (3.5-5.1)
--- NOTE | 2020-08-15 07:40 | Surgery Progress Note ---
Date of Service August 15, 2020 Assessment & Plan (1) Sigmoid diverticulitis: We will advance to clear liquids Decrease IV fluids Can probably be discharged in 1 to 2 days on oral antibiotics for at least a total of 10 days Do not think he needs surgical follow-up Do feel he should follow-up with GI and he has seen the [facility] GI doctors in the past Admission and Anticipated Discharge Date Admission Date: August 13, 2020 Subjective Less abdominal tenderness Vital signs stable Review of Systems Review of Systems: All systems reviewed & are unremarkable except as noted in HPI & below Physical Exam Physical Exam: Abdomen is soft and less tender Constitutional: well developed; no acute distress Eyes: + anicteric sclerae Respiratory: normal respiratory effort; no respiratory distress Cardiovascular: Rate/Rhythm: regular rate Musculoskeletal: Head/Neck/Chest: head atraumatic Skin: no rashes, warm and dry Neurologic: awake Psychiatric: Orientation: alert Results & Data ([facility]) Vital Signs (Past 12 Hours) Vital Signs Temp Pulse Resp BP Pulse Ox 08/14/20 22:45 36.7 C 81 16 146/80 H 94 PG Care Time/CCT Total # of Minutes Spent Total Time Spent with Patient: Total time spent is greater than 50% in coordination of care (as documented) at patient's floor/unit and/or counseling patient: Coding Level of Care Code 76265 Inpt Consult Level 3 Diagnoses Sigmoid diverticulitis K57.32
[2020-08-15] MEDS: CIPROFLOXACIN / D5W 400 MG/200 ML BAG IV SCH ×2 (08:22→21:20)
--- NOTE | 2020-08-15 11:13 | Hospitalist Progress Note ---
Date of Service August 15, 2020 Assessment & Plan (1) Sigmoid diverticulitis: Clinically improving/resolving. Cont IV cipro/flagyl. Change to po cipro/flagyl at discharge and complete 10 days in total. Cont IV fluids - cut rate to 50cc/hr. Cont clears; diet advancement per surgery. Appreciate gen surg consultation and recs. Will need outpatient colonoscopy in about 8 weeks to ensure no other pathology. [facility] GI - Dr Meredith - his office will be contacting patient with appt i nformation. of note - colonoscopy about 4 years at [facility] did not show any diverticular disease or other abnormalities. EGD at that time w/ esophagitis/gastritis and negative duodental biopsies. DVT proph - ambulation; low risk. updated by phone today. hopefully d/c home tomorrow. Admission and Anticipated Discharge Date Admission Date: August 13, 2020 Subjective patient feeling "almost back to normal" abd pain resolved no nausea no emesis tolerated clears - no GI symptoms after eating such had normal BM this am Review of Systems Constitutional: no fever Physical Exam Constitutional: well developed and well nourished; no acute distress and no altered mental status ENMT: external ear and nose normal, oropharynx normal Respiratory: normal respiratory effort, lungs clear to auscultation Cardiovascular: Rate/Rhythm: regular rate and regular rhythm Heart Sounds: normal S1 and normal S2; no murmur Vessels: posterior tibial pulses present and dorsalis pedis pulses present; no JVD Extremities: no edema Gastrointestinal (Abdomen): Inspection/Auscultation: normal bowel sounds; abdomen not distended Percussion/Palpation: abdomen soft; abdomen nontender, no guarding, abdomen not rigid and no hepatosplenomegaly Psychiatric: A+Ox3, euthymic affect Results & Data Results & Data ([facility]) Vital Signs (Past 12 Hours) Vital Signs Temp Pulse Resp BP Pulse Ox 08/15/20 07:48 36.6 C 73 16 114/81 95 Laboratory Results Laboratory Results - last 24 hr 08/15/20 08/15/20 05:08 05:08 WBC 10.43 RBC 5.16 Hgb 15.3 Hct 45.2 MCV 87.6 MCH 29.7 MCHC 33.8 RDW Std Deviation 41.0 RDW Coeff of Carly 12.7 Plt Count 247 MPV 9.3 Sodium 141 Potassium 3.8 Chloride 107 Carbon Dioxide 28 Anion Gap 6.0 BUN 9 Creatinine 1.10 Est Cr Clr Drug Dosing 114.6 Est GFR ( Amer) 101.0 Est GFR (Non-Af Amer) 87.1 BUN/Creatinine Ratio 8.3 L Glucose 100 H Calcium 9.0 PG Care Time/CCT Total # of Minutes Spent Total Time Spent with Patient: Total time spent is greater than 50% in coordination of care (as documented) at patient's floor/unit and/or counseling patient: Coding Level of Care Code 04352 Subseq Hosp Care Lvl 1 Diagnoses Sigmoid diverticulitis K57.32
[2020-08-16] MEDS: metroNIDAZOLE 500 MG/100 ML BAG IV SCH ×2 (04:49→11:30)
[2020-08-16 06:40] LABS: BUN Creatinine Ratio 6.6 (10-20); Creatinine Clr Calc Pharmacy 111.6 ml/min; Est GFR (African American) 97.7; Est GFR (Non-African American) 84.3; Potassium 3.9 mmol/L (3.5-5.1)
[2020-08-16] MEDS: D5NSS + 20MEQ KCL 20 MEQ/1,000 ML BAG IV SCH (09:48)
[2020-08-16] MEDS: CIPROFLOXACIN / D5W 400 MG/200 ML BAG IV SCH (09:48)
--- NOTE | 2020-08-16 12:47 | Surgery Progress Note ---
Date of Service pt is doing fine, no abdominal pain, no fever, no diarrhea, he tolerated clear diet. August 16, 2020 Assessment & Plan Admission and Anticipated Discharge Date Admission Date: August 13, 2020 doing fine, pt can be discharged today, F/U GI, F/U surgery prn, Subjective patient feeling "almost back to normal" abd pain resolved no nausea no emesis tolerated clears - no GI symptoms after eating such had normal BM this am Physical Exam Constitutional: WD/WN, vitals as above well developed and well nourished Eyes: PERRL, conjunctivae normal, anicteric sclerae ENMT: external ear and nose normal, oropharynx normal Neck: trachea midline, no thyromegaly Respiratory: normal respiratory effort, lungs clear to auscultation Cardiovascular: RRR, no murmur, no edema Gastrointestinal (Abdomen): normal bowel sounds, soft, nontender, no hepatosplenomegaly Musculoskeletal: no cyanosis or clubbing, extremities motor strength 5/5 Skin: no rashes, warm and dry Neurologic: patellar DTR's 2+ bilat, sensation intact Psychiatric: Orientation: alert and oriented x 3 Results & Data ([facility]) Vital Signs (Past 12 Hours) Vital Signs Temp Pulse Resp BP Pulse Ox 08/16/20 07:32 36.7 C 74 18 115/80 97 Laboratory Results Abnormal lab results 08/16/20 Range/Units 05:24 Chloride 108 H (98-107) mmol/L BUN/Creatinine Ratio 6.6 L (10-20) Glucose 100 H (70-99) mg/dl
--- NOTE | 2020-08-16 15:52 | Discharge Summary ---
Date of Service August 16, 2020 Admission HPI Per Admitting Provider 35yo C male with no significant past medical history presenting with RLQ abdominal pain that began suddently at 20:00 yesterday. Pain initially mild, 2- 3/10 but became more severe throughout the day. He has some chills but denies fever/nausea/vomiting/diarrhea/bleeding. He is slightly constipated - last BM yesterday at 08:30. No additional complaints at this time. No previous diagnosis of diverticulitis. Patient's mother has diverticulitis. ER Course: Cipro, Flagyl, NSS, Surgery consultation completed - admission recommended for IV antibiotics Principal Diagnosis Diverticulitis Discharge Exam Constitutional WD/WN, vitals as above Eyes EOM intact bilaterally; no conjunctival abnormality ENMT external ear and nose normal, oropharynx normal Neck trachea midline, no thyromegaly normal visual inspection Respiratory normal respiratory effort, lungs clear to auscultation no respiratory distress Cardiovascular RRR, no murmur, no edema Gastrointestinal (Abdomen) Inspection/Auscultation: abdomen normal to inspection; abdomen not distended Musculoskeletal no cyanosis or clubbing, extremities motor strength 5/5 Skin no rashes, warm and dry Neurologic moves all extremities and awake Psychiatric Orientation: alert, oriented to person and cooperative Discharge Data Allergies Allergy/AdvReac Type Severity Reaction Status Date / Time No Known Allergies Allergy Verified 08/13/20 22:33 Consultations 08/13/20 21:11 Consult General Surgery Stat 08/13/20 21:42 ED Decision to Admit Stat Ordered Studies 08/13/20 19:52 CT abd pelvis IV con only Stat Hospital Course (1) Sigmoid diverticulitis: Clinically improving/resolving. - Was on Cipro/Flagyl. Changed to Cipro/Flagyl PO on discharge for a 8-day course. Will need outpatient colonoscopy in about 8 weeks to ensure no other pathology. [facility] GI - Dr Meredith - his office will be contacting patient with appt information. Total Time Total Time Spent Total Time Spent (In Minutes): 35 Discharge Plan Discharge Items Patient Disposition: Home - Self-Care Reason For Visit: DIVERTICULITIS Discharge Diagnosis: Diverticulitis Activity: Resume your previous activity Non-emergency contact: Primary Care Provider and [employer] Call non-emergency contact if: your symptoms worsen, your pain is not controlled, your pain is worsening and your temperature is above 101 Follow-up/Referrals: Ric Meredith [Physician] - (see Dr Meredith in 6 weeks to arrange outpatient colonoscopy; diagnosis - sigmoid diverticulitis. DR. MEREDITH'S OFFICE WILL CALL THE PATIENT WITH F/U APPT. ) Ela Padilla MD [Primary Care Provider] - Diet: Regular Addtl Attending Provider Instructions: Mr. Shelby, You were admitted to the hospital with abdominal pain and found to have diverticulitis. Diverticulitis is an infection in the large intestine (colon). This gets better with bowel rest and antibiotics which it did in your case. We will send you out with 5 more days of antibiotics. The biggest side effect of the Flagyl is stomach upset, so please take it with a snack. Both antibiotics start tonight, so please pick them up today. A high-fiber diet is also recommended once the acute phase of diverticulitis has resolved. This recommendation is based upon observational studies that suggested long-term fiber supplementation may reduce the incidence of recurrent diverticulitis. As we discussed, there is no evidence that corn, seeds, or nuts can "cause" diverticulitis, so there is no need to avoid these. If your symptoms get worse, please call your PCP or the GI doctor to assess whether you are having another flare. Recurrence can be as high as 6.6%, and we would want to treat it quickly to prevent it from getting worse. Please see Dr. Meredith in the next month or so because you will need a colonoscopy to be sure there is nothing else concerning going on in the colon. Pending Studies at Discharge: No Stand-Alone Forms: My [facility], Smoking Cessation Medications and DC Order Prescriptions: New ciprofloxacin HCl 500 mg tablet 500 mg PO BID Qty: 10 RF: 0 metronidazole 500 mg tablet 500 mg PO TID Qty: 15 RF: 0 ondansetron 4 mg tablet,disintegrating 4 mg PO Q8H PRN (Reason: nausea and vomiting) 5 Days Qty: 14 RF: 0 Discharge Orders: Discharge Order (Routine); Ordered 08/16/20 Ordered By: Kamran Savage/Other Patient Handouts: Low-Fiber Diet, Eating a High-Fiber Diet Admission Data Admit Date/Time: 08/13/20 22:33 Attending Provider: Kamran Mcgee Admit Provider: Tala Ying Primary Care Provider: Ela Padilla Other Providers: Hero Montoya ; Kamran Mcgee Other Interventions: Discharge Summary Assessment (RN) Last Done: 08/16/20 14:37 Coding Level of Care Code D/C Day Management >30 mins Diagnoses Sigmoid diverticulitis K57.32
== END 2020-08-16 16:41 | disposition home or self-care (01) | DRG 392 ==
LOC: ED 18:34 → SUATTDRO 22:33 → 3N 22:33
DX: K57.32 Diverticulitis of large intestine without perforation or abscess without bleeding